=== PATIENT | female | born 1940 | race Caucasian/White ===

== ENCOUNTER 2016-06-03 07:15 | Day surgery (SDC) | payer MEDICARE, OTHER ==
[~2016-06-03] VITALS: Ht 160 cm; Wt 70.0 kg
[~2016-06-03 07:15] MED LIST: 0.9% Sodium Chloride 1,000 ML IV SCH; ASPI-973 PO; GLIM4TAB2 PO; METF-777 PO; METO50TA3 PO; SIMV20TA4 PO; Sodium Chloride LOK Flush 10 mL Syringe IV PRN; TRIA1CAP5 PO; fentaNYL-PF 50 mCg/mL 2 mL Inj IVPUSH PRN
[2016-06-03 08:14] VITALS: BP 153/78; PULSE 88; O2SAT 95
--- NOTE | 2016-06-03 09:12 | PCM.ENDCOL ---
Colonoscopy Date of Service: Jun 03, 2016 Physician Stephane Smith MD Indication for Procedure Rectal bleeding Post Procedure Dx & Findings: Polyps hemorrhoids Procedure Colonoscopy Prep adequate Cecum 6 minutes Withdrawal 15 minutes PROCEDURE IN DETAIL: After unremarkable rectal examination Olympus video colonoscope was inserted patient's anal canal and advanced the cecum. Landmarks were identified including ileocecal valve and the appendiceal orifice. Scope was withdrawn systematically. The mucosa of the cecum, ascending, transverse, descending, sigmoid, rectal mucosa lined with whitish, pink, smooth, glistening, normal-appearing mucosa, normal fine branching, underlying vascularity, normal haustra. The patient tolerated procedure and was transported to observation area. In the transverse colon, there was a 5 mm polyp which was resected completely using cold snare. There was a 1 mm polyp which was also resected with cold forceps. In the sigmoid, there was a 2 mm polyp which was resected completely using cold snare. In the rectum retroflexion was done which showed hemorrhoids and anal canal was inspected carefully on the way out and moderate hemorrhoids noted. Impression Polyps 2 status post complete removal Hemorrhoids Recommendation Repeat colonoscopy 3 years Presedation Assessment Risks and Benefits Informed consent was obtained from the patient after all risks and benefits including but not limited to drug reaction, infection, pain, bleeding, perforation, as well as alternatives were discussed. Patient monitoring Continuous pulse oximetry, cardiac monitoring, blood pressure monitoring, IV access, and oxygen at 2L per nasal cannula. Periprocedural Fentanyl: Fentanyl 100mcg Incrementally Midazolam: Midazolam 5mg Incrementally Complications There were no periprocedural complications identified. Post Procedure Plan Post Procedure Recommendations 1. Restrict activities today. 2. Resume normal activities in the morning. 3. Resume medications. 4. Patient informed of normal post procedure side effects as bloating, drowsiness, blood streaking in the stool. 5. average risk CRCS. If colon polyps come back as: -Hyperplastic- can repeat colonoscopy in 10 years -Tubular adenoma- repeat colonoscopy in 5 years -Tubulovillous/villous adenoma- repeat colonoscopy in 3 years -If any dysplasia- return to clinic as soon as possible 6. Please don't hesitate to call me with any questions. Stephane Smith MD Jun 03, 2016 09:11
[2016-06-03 09:14] VITALS: BP 128/68; PULSE 87; O2SAT 94
[2016-06-03 09:24] VITALS: BP 116/61; PULSE 82; O2SAT 94
[2016-06-03 09:34] VITALS: BP 113/62; PULSE 83; O2SAT 94
[2016-06-03 09:44] VITALS: BP 138/71; PULSE 87; O2SAT 96
--- NOTE | 2016-06-04 11:41 | PATH ---
SURGICAL PATHOLOGY Attending Physician:Stephane Smith M.D. CASE STATUS: Signed Out PATIENT NAME: JT HARRIS PID: [id number] : 1940 DATE COLLECTED:06/03/2016 17:14 SPECIMEN: 1: Colon, Biopsy 2: Colon, Biopsy CLINICAL HISTORY: A: TRANSVERSE POLYP B: SIGMOID POLYP FINAL DIAGNOSIS: 1.TRANSVERSE COLON POLYP: TUBULAR ADENOMA. 2.SIGMOID COLON POLYP: TUBULAR ADENOMA. ICD10 CODE D12.3 GROSS DESCRIPTION: The specimen is received in two formalin filled containers labeled with the patient's name. 1). The specimen is sublabeled "transverse polyp" and consists of multiple portions of tissue which aggregate to 0.7 x 0.6 x 0.4 CM. The specimen is entirely submitted in cassette 1A. 2). The specimen is sublabeled "sigmoid polyps" and consists of a 0.2 x 0.2 x 0.2 CM portion of tissue which is entirely submitted in cassette 2A. 06/03/2016 DAC MICRO DESCRIPTION: See diagnosis. ICD-9 CODES: CPT CODES: 1: 28411 2: 12327 Electronically Signed Out Juan David Woody MD [facility] Pathology [facility] [address], [place] [address] Technical component performed at [facility], [facility] [address], [place], [address]
[2016-11-01] MEDS ORDERED: METO50TA3 PO (14:03)
[2016-11-01] MEDS ORDERED: SIMV20TA4 PO (14:03)
[2016-11-01] MEDS ORDERED: aller-tec (14:03)
[2016-11-01] MEDS ORDERED: TRIA1CAP5 PO (14:03)
[2016-11-01] MEDS ORDERED: DOCU-41 PO (14:03)
[2016-11-01] MEDS ORDERED: INSU100I30 SQ (14:03)
[2016-11-01] MEDS ORDERED: GLIM4TAB2 PO (14:03)
[2016-11-01] MEDS ORDERED: ASPI-973 PO (14:03)
== END 2016-06-03 23:59 | disposition home or self-care (01) ==
LOC: END 07:15
PROVIDERS: ATTEND Internal Medicine
DX: D12.5 Benign neoplasm of sigmoid colon (principal); D12.3 Benign neoplasm of transverse colon; K64.9 Unspecified hemorrhoids; I10 Essential (primary) hypertension; E11.9 Type 2 diabetes mellitus without complications; Z79.4 Long term (current) use of insulin
CPT/HCPCS: 45380; 45385; 88305; 99153; G0500; J2250; J7030

== ENCOUNTER 2016-06-13 07:35 | Emergency (ER) | payer MEDICARE, OTHER ==
[~2016-06-13] VITALS: Ht 157.5 cm; Wt 70.0 kg
[~2016-06-13 07:35] MED LIST changes: -0.9% Sodium Chloride 1,000 ML IV SCH; -Sodium Chloride LOK Flush 10 mL Syringe IV PRN; -fentaNYL-PF 50 mCg/mL 2 mL Inj IVPUSH PRN
[2016-06-13 07:47] VITALS: BP 189/85; PULSE 103; RESP 14; O2SAT 95
[2016-06-13] MEDS ORDERED: 0.9% Sodium Chloride 1,000 ML IV ONE (08:02)
--- NOTE | 2016-06-13 08:05 | ED.REPORT ---
HPI-GI Bleed Date of Service Jun 13, 2016 ED Provider: Raj Garcia MD The patient is a 75 year old female with history of diabetes mellitus, hypertension, hyperlipidemia, and colon cancer s/p colectomy, who presents to the emergency department complaining of left lower abdominal cramping that has been intermittent over the last few days. The pain lasts for a little over an hour. The pain seems to be improved with applied heat and Ibuprofen. She has also noticed bleeding but is unsure if it is coming from her rectum or vagina. She recently had a colonoscopy on the for these same symptoms. She was told that she has hemorrhoids. They also removed polyps but she has not heard back about the results. She denies history of Crohn's disease, diverticulitis, or ulcerative colitis. She takes 81 mg aspirin daily but no other blood thinners. She denies fever, chills, nausea, vomiting, diarrhea, shortness of breath or chest pain. Nursing Notes Stated Complaint: COLON PAIN/BLEEDING Chief Complaint: Female Abdominal Pain Nursing Notes Reviewed: Yes Allergies: Coded Allergies: Penicillins (Verified Allergy, Unknown, 06/02/16) Scheduled Aspirin (Aspirin) 81 Mg Tablet 81 MG PO DAILY Glimepiride (Glimepiride) 4 Mg Tablet 4 MG PO DAILYAC Metformin HCl (Metformin HCl ER) 500 Mg [id number] 500 MG PO ACHS Metoprolol Tartrate (Metoprolol Tartrate) 50 Mg Tablet 50 MG PO BID Polyethylene Glycol 3350 (Miralax) 17 Gm Powd.pack 17 GM PO DAILY Simvastatin (Simvastatin) 20 Mg Tablet 20 MG PO HS Triamterene/HCTZ 37.5-25 mg (Triamterene/HCTZ 37.5-25 mg) 1 Each Capsule 1 CAPSULE PO DAILY General Time Seen by Provider: 08:06 Chief Complaint Chief Complaint: Abdominal pain Hx Obtained From: Patient Arrived By: Walk-in Onset Occurred: 3 days ago Symptom Duration: Intermittent Progression Since Onset: Intermittent Location: : LLQ Quality: Painful Radiation: : Does not radiate Severity: Current: Moderate Severity: Maximum: Moderate Recent Healthcare: No recent hospitalization, Recent doctor visit, Previous surgery Similar Sx Previous: No Past Medical History Past Medical History Colon Cancer s/p colectomy Diabetes mellitus Hyperlipidemia Hypertension Past Surgical History Colonoscopy Colectomy Family History Noncontributory Smoking History Former Smoker Social History Other Social History: Local resident Ambulatory Status Independent Review of Systems Review of Systems Note: +bleeding from vagina or rectum Constitutional: Denies: Chills, Fever Respiratory: Denies: Shortness of breath Cardiovascular: Denies: Chest pain GI: Reports: Abdominal pain, Denies: Diarrhea, Nausea, Vomiting Complete sys rev & neg: except as marked. Physical Exam Initial Vital Signs Vital Signs (First) Date Time Temp Pulse Resp B/P Pulse Ox O2 Delivery O2 Flow Rate FiO2 06/13/16 07:47 36.3 103 14 189/85 95 Room Air Initial VS: Reviewed Head / Eyes: Atraumatic, Normocephalic, PERRL ENT: Mucous membranes moist, Conjunctiva normal, No scleral icterus Neck: Supple, Non-tender, Full range of motion Lymphatic: No lymphadenopathy Extremities: Vascular intact, Neuro intact, No swelling, No tenderness Skin: Warm, Dry, No cyanosis Neurologic: Alert, Oriented, Nonfocal Psychiatric: Mood/affect normal, Behavior normal, Normal thought content General/Constitutional: Awake, Alert, No acute distress, Cooperative Respiratory / Chest: Atraumatic, Breath sounds NL, Breath sounds = bilat, No respiratory distress, No rales, No rhonchi, No wheezing Cardiovascular: Heart rate NL, Regular rhythm, Heart sounds NL, No murmurs, No rubs, Cap refill not delayed, Peripheral circulation NL, Pulses = bilaterally Abdomen: Atraumatic, Soft, McBurney's non-tender, No guarding, No rebound, BS normoactive, No distention, No hernia, No palpable mass, No pulsatile mass Well healed midline surgical incision. Tolerates firm palpation in all 4 quadrants. Mild tenderness to really firm palpation in the LLQ. No rigidity. Rectal for Blood: Positive: Blood - occult heme + Aitchbone Breaker present. Bright red blood present at the rectum. She has no obvious source of bleeding. Firm stool present in the rectal vault that is mixed with bright red blood. Lower Extremity / Pelvis / MS: No swelling, Non-tender, Neurologic intact, Vascular intact, No edema No calf swelling or tenderness Interpretation & Diagnostics Lab Results Interpretation Result Diagram: 06/13/16 0805 06/13/16 0802 Test 06/13/16 08:02 06/13/16 08:05 06/13/16 09:12 Sodium Level 142mEq/L (134-144) Potassium Level 4.0mEq/L (3.5-5.2) Chloride Level 102mEq/L (97-108) Carbon Dioxide Level 26mmol/L (18-29) Blood Urea Nitrogen 16mg/dL (8-27) Creatinine 0.72mg/dL (0.57-1.00) Estimat Glomerular Filtration Rate 113mL/min (>59) Glucose Level 208mg/dL (60-99) Calcium Level 9.5mg/dL (8.5-10.1) Total Bilirubin 0.4mg/dL (0.0-1.2) Aspartate Amino Transf (AST/SGOT) 25U/L (0-50) Alanine Aminotransferase (ALT/SGPT) 24U/L (0-32) Alkaline Phosphatase 56U/L (25-165) Total Protein 7.7g/dL (6.4-8.4) Albumin 4.3g/dL (3.4-5.0) White Blood Count 10.9th/mm3 (3.8-10.1) Red Blood Count 4.82mil/mm3 (3.90-5.20) Hemoglobin 14.4g/dL (12.0-15.6) Hematocrit 42.9% (35.0-46.0) Mean Corpuscular Volume 89.0fL (81-100) Mean Corpuscular Hemoglobin 29.9pg (27.0-35.0) Mean Corpuscular Hemoglobin Concent 33.6% (32.0-37.0) Red Cell Distribution Width 13.9% (12.3-15.4) Platelet Count 300bil/L (150-400) Neutrophils (%) (Auto) 58.4% (40-74) Lymphocytes (%) (Auto) 33.5% (14-46) Monocytes (%) (Auto) 5.7% (4-12) Eosinophils (%) (Auto) 1.9% (0-5) Basophils (%) (Auto) 0.3% (0-3) Prothrombin Time 10.2sec (8.1-12.5) Prothromb Time International Ratio 0.95ratio Urine Color Yellow (YELLOW) Urine Appearance Clear (CLEAR,HAZY) Urine pH 6.0 (5.0-8.0) Urine Specific [place] 1.018 (1.003-1.035) Urine Protein Negativemg/dL (NEG,TRACE) Urine Glucose (UA) Negativemg/dL (NEGATIVE) Urine Ketones Negativemg/dL (NEGATIVE) Urine Occult Blood Negative (NEGATIVE) Urine Nitrite Negative (NEGATIVE) Urine Bilirubin Negative (NEGATIVE) Urine Urobilinogen Normalmg/dL (NORMAL) Urine Leukocyte Esterase Negative (NEGATIVE) Urine RBC 0-2/hpf (0-2) Urine WBC 0-5/hpf (0-5) Urine Epithelial Cells Moderate/hpf (NONE-MOD) Urine Crystals None seen (NONE SEEN) Urine Bacteria None/hpf (NONE-FEW) Urine Hyaline Casts None/lpf (NONE) Urine Granular Casts None seen (NONE SEEN) Urine Waxy Casts None seen (NONE SEEN) Urine Red Blood Cell Casts None seen (NONE SEEN) Urine White Blood Cell Casts None seen (NONE SEEN) Urine Mucus None seen (None Seen) Urine Trichomonas None seen (NONE SEEN) Urine Yeast None (NONE SEEN) Urinalysis Comment None Urine Culture Reflexed Not indicated ECG Interpretation ECG Interpretation: Normal sinus rhythm with a rate of 91 Time: 08:20 Interpreted by: ED physician Procedures PROCEDURE: ANOSCOPE NOTES: There is evidence of internal hemorrhoids. There is no evidence of active bleeding. No masses seen. Re-Eval/Medical Decision Med Decision/Clinical Course In summary, the patient is 75-year-old female with a remote history of colon cancer status post partial colectomy who presents the emergency department with intermittent sharp abdominal pain and bright red blood per rectum. The patient was recently seen and evaluated for the same complaint and underwent a colonoscopy that was unremarkable except for 2 polyps which were removed. Pathology is still pending. She presents back to the emergency department complaining that she is still having intermittent left-sided abdominal discomfort, hard stools and bright red blood per rectum. Of note her colonoscopy did mention presence of internal hemorrhoids. He is afebrile stable vital signs in no apparent distress. Her abdominal examination is benign without any evidence of guarding, rigidity, rebound or guarding or significant focal tenderness. Lab for studies notable as below: WBC 10.9, hematocrit 42.9, CMP is unremarkable except mildly elevated glucose, coags normal She was discussed with GI doctor Luis who performed colonoscopy. Given the small size of polyps he thinks that bleeding is likely to be related to recent polypectomy and more likely to be related to internal hemorrhoids. Anoscopy was performed and demonstrated internal hemorrhoids. The patient also had hard brown stool in the rectal vault. I see no evidence of external hemorrhoids, anal fissures or obvious source of bleeding. Given the patient's recent colonoscopy and endoscopy today I think that her bleeding is unlikely to be related to malignancy. There were no findings suggestive of upper GI source and the patient's stool was brown and non-melanotic. Patient prescribed MiraLAX and advised to increase dietary fiber. I suspect her bleeding is related to her internal hemorrhoids. She will follow up with GI on an outpatient basis in the coming week. Follow-up and return precautions were reviewed in detail she was discharged in good condition. Source of Hx: Old records Re-Evaluation/Progress : Time of Eval: 10:12 Re-Evaluation/Progress Note: Rehecked the patient. Used the anoscope. Discussed diagnosis and plan for discharge. All questions were addressed. Consultation : Referral / Consult Name: Stephane Smith MD Call Returned at: 09:16 Note: Spoke with the on-call associate web developer. He is okay with plan for discharge and outpatient followup. Counseled Regarding: Diagnosis, Lab results, Need for follow-up, When/why to return to ED Discharge & Departure Impression: Primary Impression: Constipation Constipation type: unspecified constipation type Qualified Code: K59.00 - Constipation, unspecified Additional Impressions: Hemorrhoids Hemorrhoid type: unspecified Qualified Code: K64.9 - Unspecified hemorrhoids Rectal bleeding History of colon cancer Lower abdominal pain Disposition: Home Discharge Condition All VS Reviewed: Yes Condition: Stable Patient Instructions: Constipation (ED) Additional Instructions: Thank you for seeking care at the emergency room. It is difficult for us to make definitive diagnoses in the ED but we believe that you are experiencing pain from constipation and bleeding from the hemorrhoids. Our primary goal today in the ED was to evaluate you for any life-threatening conditions. Your evaluation was reassuring. You will be discharged with a prescription for MiraLAX. You can mix this with water or juice. You should also try to increase your fiber intake and make sure to drink plenty of fluids. You should follow-up with your GI specialist, Dr. Smith in the next week. You should return to the ED immediately if you develop increased pain, heavy bleeding, fevers, vomiting, lightheadedness, weakness or any other concerning signs or symptoms. Thank you for letting us partake in your care today. Referrals: Marily Toscano PA-C (PCP) Stephane Smith MD [facility] Attestation Portions of this note were transcribed by Carmela Lowe. I, Dr. Garcia personally performed the history, physical exam and medical decision-making; I reviewed and confirmed the accuracy of the information in the transcribed note. Signed by: Ronal Virgen, 06/13/2016 and 1020. copies to: Stephane Smith MD; Marily Toscano PA-C, Beck O MD Jun 13, 2016 08:05 Carmela Lowe Jun 13, 2016 08:10
[2016-06-13 08:20] LABS: BASOPHILS % (AUTO) 0.3 % (0-3); EOSINOPHILS % (AUTO) 1.9 % (0-5); MONOCYTES % (AUTO) 5.7 % (4-12); Mean Corpuscular Hemoglobin 29.9 pg (27.0-35.0); NEUTROPHILS % (AUTO) 58.4 % (40-74); Platelet Count 300 bil/L (150-400)
[2016-06-13 08:36] VITALS: BP_SYST 147; BP_SYST 149; BP_SYST 151; BP_DIAS 64; BP_DIAS 76; BP_DIAS 81; PULSE 83; PULSE 85; O2SAT 96
[2016-06-13 08:37] LABS: INR 0.95 ratio
[2016-06-13 09:47] LABS: APPEARANCE,URINE CLEAR (CLEAR,HAZY); COLOR,URINE YELLOW (YELLOW); OCCULT BLOOD,URINE NEGATIVE (NEGATIVE); UROBILINOGEN,URINE NORMAL (NORMAL)
[2016-06-13] MEDS ORDERED: POLY17PO6 PO (10:17)
[2016-06-13 10:25] VITALS: BP 141/69; PULSE 78; RESP 17; O2SAT 99
[2016-11-01] MEDS ORDERED: ASPI-973 PO (14:03)
[2016-11-01] MEDS ORDERED: TRIA1CAP5 PO (14:03)
[2016-11-01] MEDS ORDERED: GLIM4TAB2 PO (14:03)
[2016-11-01] MEDS ORDERED: INSU100I30 SQ (14:03)
[2016-11-01] MEDS ORDERED: METO50TA3 PO (14:03)
[2016-11-01] MEDS ORDERED: DOCU-41 PO (14:03)
[2016-11-01] MEDS ORDERED: SIMV20TA4 PO (14:03)
[2016-11-01] MEDS ORDERED: aller-tec (14:03)
== END 2016-06-13 10:26 | disposition home or self-care (01) ==
LOC: SED 07:35
DX: K59.00 Constipation, unspecified (principal); K64.9 Unspecified hemorrhoids; R10.32 Left lower quadrant pain; I10 Essential (primary) hypertension; E11.9 Type 2 diabetes mellitus without complications; E78.5 Hyperlipidemia, unspecified; Z85.038 Personal history of other malignant neoplasm of large intestine; Z90.49 Acquired absence of other specified parts of digestive tract; Z79.82 Long term (current) use of aspirin; Z79.84 Long term (current) use of oral hypoglycemic drugs; Z87.891 Personal history of nicotine dependence; Z88.0 Allergy status to penicillin
CPT/HCPCS: 36415; 80053; 81000; 85025; 85610; 86850; 93005; 96360; 99285; J7030

== ENCOUNTER 2016-11-02 08:01 | Day surgery (SDC) | payer MEDICARE, OTHER ==
[~2016-11-02] VITALS: Ht 157.5 cm; Wt 70.5 kg
[2016-11-02] VITALS (12 sets, daily range): BP systolic 119–152; BP diastolic 51–77; PULSE 66–91; RESP 11–16; O2SAT 91–100
[~2016-11-02 08:01] MED LIST changes: +DOCU-41 PO; +INSU100I30 SQ; +Insulin Human REGular 300 Unit/3 mL Inj SUBQ SCH; -METF-777 PO; +aller-tec
[2016-11-02] MEDS ORDERED: fentaNYL-PF 50 mCg/mL 2 mL Inj ONE (08:02)
[2016-11-02] MEDS ORDERED: Ondansetron 2 mg/mL 2 mL Inj ONE (08:02)
[2016-11-02] MEDS ORDERED: Propofol 10,000 mCg/mL 20 mL Inj ONE (08:02)
[2016-11-02] MEDS: Lactated Ringer's 1,000 ML IV SCH ×3 (08:19→13:10)
[2016-11-02 08:58] LABS: BASOPHILS % (AUTO) 0.7 % (0-3); EOSINOPHILS % (AUTO) 3.4 % (0-5); MONOCYTES % (AUTO) 7.2 % (4-12); Mean Corpuscular Hemoglobin 29.8 pg (27.0-35.0); Mean Corpuscular Volume 89.8 fL (81-100); NEUTROPHILS % (AUTO) 55.7 % (40-74); Platelet Count 269 bil/L (150-400)
--- NOTE | 2016-11-02 10:54 | PCM.HPANE ---
Patient Data Surgeon Admitting Provider: Attending Provider:Renetta Bryant MD Primary Care Physician:Marily Toscano PA-C Other Provider:Molly Pandey Anesthesia Reason for Visit Vaginal Bleeding Ht/WT & BMI Height (Feet): 5 Height (Inches): 2.00 Weight (Kilograms): 70.500 Body Mass Index 28.00 Allergies Coded Allergies: Penicillins (Verified Allergy, Unknown, 06/02/16) Iodinated Contrast- Oral and IV Dye (Verified Adverse Reaction, Unknown, delayed reaction of itching, 10/01/16) Pt told doctor that she had itching a couple of days after contrast. She is being pretreated for CT 10/04/16. kld Past Anesthesia History Anesthesia History: Denies:: Abnormal Airway, Anesthesia Reactions, Difficult Intubation, Fam Anesthesia Reaction, Fam Malignant Hypertherm, Malignant Hyperthermia Diabetes History Hx Diabetes?: Yes Type of Diabetes: Type II Glycemic Control: Insulin & Oral Medication MRSA MRSA: No Medications Blood Thinner: Aspirin Hypertension Medication: No Home Meds Incl Beta Louis: Yes (Metoprolol 25) Date Beta Louis Taken: Nov 02, 2016 Time Beta Louis Taken: 0700 Previous Beta Louis Dose >24: Previous Dose <24 Hours Reported Medications Triamterene/HCTZ 37.5-25 mg 1 Each Capsule1 Capsule PO DAILY Ref 0 11/01/16 Simvastatin 20 Mg Vecuhl25 Mg PO HS Ref 0 11/01/16 Metoprolol Tartrate 50 Mg Tgabmv35 Mg PO BID 30 Days Ref 0 11/01/16 Glimepiride 4 Mg Tablet4 Mg PO DAILY #30 TABLET Ref 0 11/01/16 Docusate Sodium (Colace)100 Mg [id number] Mg PO DAILY PRN For Constipation Ref 0 11/01/16 Insulin Glargine,Hum.rec.anlog (Basaglar Kwikpen U-100)100 Unit/Ml (3 Ml) Insuln.pen34 Unit SQ DAILY 11/01/16 Aspirin 81 Mg Tmpkqe84 Mg PO DAILY Ref 0 11/01/16 [aller-kimberly] No Conflict Check10 Mg DAILY PRN allergy sx 11/01/16 Discontinued Reported Medications Triamterene/HCTZ 37.5-25 mg 1 Each Capsule1 Capsule PO DAILY Ref 0 06/02/16 Simvastatin 20 Mg Zhcevm39 Mg PO HS Ref 0 06/02/16 Metoprolol Tartrate 50 Mg Dhrjgv59 Mg PO BID 30 Days Ref 0 06/02/16 Metformin HCl (Metformin HCl ER)500 Mg [id number] Mg PO ACHS 06/02/16 Glimepiride 4 Mg Tablet4 Mg PO DAILYAC #30 TABLET Ref 0 06/02/16 Aspirin 81 Mg Lgmqrr38 Mg PO DAILY Ref 0 06/02/16 Discontinued Scripts Polyethylene Glycol 3350 (Miralax)17 Gm Powd.pack17 Gm PO DAILY 30 Days Prov:Raj Garcia MD 06/13/16 History History of ENT Problems?: No HEENT History: Denies:: Abnormal Airway Cataracts Difficult Intubation Dysphagia Glaucoma Hearing Problem Denture Type: Full- Upper Partial- Lower Teeth Condition: No Teeth Missing Teeth Hx of Heart Problems?: Yes Cardiovascular History: Positive for:: Hypertension Denies:: AICD Abdominal Aortic Aneurism Atrial Fibrillation Chest Pain Congestive Heart Failure Irregular Heartbeat Pacemaker Valvular Heart Disease Hx of Respiratory Problem?: No Respiratory History: Denies:: Asthma COPD Chest Surgery Cough Dyspnea Emphysema Hemoptysis Oxygen Administration Pneumonia Pulmonary Embolism Tuberculosis Use of C-PAP Machine Use of Inhalers / NEBS Hx Neurologic Problems?: No Neurological History: Denies:: CVA Dementia Headaches Multiple Sclerosis Parkinson's Disease Seizures Hx of GI Problems?: Yes Other GI Pertinent History: hx of sigmoid colectomy for colon cancer Hx of Problems?: No Genitourinary History: Denies:: Kidney Stones Urinary Tract Infection Female Hx: Denies:: Currently Problems with Breasts? Skin History: Denies:: History Skin Disorders? Pressure Ulcers Hx Musculoskeletal Problems?: No Musculoskeletal History: Denies:: Degenerative Joint Fibromyalgia Joint Replacement Myasthenia Gravis Osteoarthritis Psycho Social History: Denies:: Anxiety Hx Depression Hx Surgeries?: Yes (colon resection, ) Hx Any Other Health Problems?: Yes Other History: Positive for:: Cancer (colon) Denies:: Thyroid Disease History Blood Transfusions: Positive for:: Accept Blood Products? Denies:: Blood Transfusions Hx Diabetes: Yes Hx Alcohol Use: NoHx Substance Use: No Smoking Status: Former Smoker Stop/Bang S-Snoring: Do You Snore Loudly: No T-Tired: feel tired, fatigued: No O-Obsered: Observed not breath: No P-Blood Pressure: treated: No B- Body Mass Index > 35 kg/m2: No A- Age over 50: No N- Neck Large Circumference: No G- Gender Male: No APRIL Total Score: 0 APRIL Risk Assessment: Low Risk, <3 Yes Risk Assessment Category Category 1A: Patient has history of documented sleep apnea, and HAS NOT received any narcotic, sedative or anesthesia administration during this stay. Category 1B: Patient has history of documented sleep apnea, and HAS received any narcotic , sedative or anesthesia administration during this stay Category 2: Patient has SUSPECTED Obstructive Sleep Apnea, and HAS received any narcotic , sedative or anesthesia administration during this stay. Category 3: Patient has SUSPECTED Obstructive Sleep Apnea and HAS NOT received narcotic, sedative or anesthesia administration during this stay. Category 4: Outpatient in Procedural Areas with known sleep apnea or who screen positive for High Risk via the STOP/BANG questionnaire. Exam Exam Vital Signs Vital Signs Date Time Temp Pulse Resp B/P Pulse Ox O2 Delivery O2 Flow Rate FiO2 11/02/16 08:17 35.9 66 12 151/61 96 Room Air General Appearance: Alert, Oriented X3, Cooperative, No Acute Distress HEENT/AIRWAY: MP 2 Lungs: Clear to Auscultation, Normal Air Movement Heart: Exam Unremarkable, Regular Rate/Rhythm, No Murmurs/Rubs/Gallops Meds/Labs/Diagnostics Admission Meds Current Medications Lactated Ringer's (Lr) 1,000 ml @ 120 mls/hr Q8H20M IV Last administered on t 08:19; Start 11/02/16 at 05:00; Stop 11/02/16 at 13:19 Labs Test 11/02/16 08:54 White Blood Count 7.4th/mm3 (3.8-10.1) Red Blood Count 4.20mil/mm3 (3.90-5.20) Hemoglobin 12.5g/dL (12.0-15.6) Hematocrit 37.7% (35.0-46.0) Mean Corpuscular Volume 89.8fL (81-100) Mean Corpuscular Hemoglobin 29.8pg (27.0-35.0) Mean Corpuscular Hemoglobin Concent 33.2% (32.0-37.0) Red Cell Distribution Width 13.4% (12.3-15.4) Platelet Count 269bil/L (150-400) Neutrophils (%) (Auto) 55.7% (40-74) Lymphocytes (%) (Auto) 32.9% (14-46) Monocytes (%) (Auto) 7.2% (4-12) Eosinophils (%) (Auto) 3.4% (0-5) Basophils (%) (Auto) 0.7% (0-3) Plan Impression Patient chart reviewed, patient interviewed and anesthestic plan with risks, benefits, and alternatives discussed, and informed consent obtained. NPO per Anesth. Guidelines: Yes ASA Physical Status: ASA2 Mod Systemic Disease Anesthetic Plan: GA Bene/Risks/Altern/Consents: Yes HP Complete Prior to Induction: Yes Sohail Grullon MD Nov 02, 2016 09:13
[2016-11-02] MEDS ORDERED: Labetalol 5 mg/mL 4 mL Inj IV PRN (10:55)
[2016-11-02] MEDS ORDERED: fentaNYL-PF 50 mCg/mL 2 mL Inj IVPUSH PRN (10:55)
[2016-11-02] MEDS ORDERED: Phenylephrine 10,000 mCg/mL Inj IVPUSH PRN (10:55)
[2016-11-02] MEDS ORDERED: MetoCLOpramide 5 mg/mL 2 mL Inj IVPUSH PRN ×2 (10:55→12:00)
[2016-11-02] MEDS ORDERED: Atropine 0.4 mg/mL Inj IVPUSH PRN (10:55)
[2016-11-02] MEDS ORDERED: HYDROmorphone 1 mg/mL Inj IVPUSH PRN ×2 (10:55→12:00)
[2016-11-02] MEDS ORDERED: Lactated Ringer's 500 ML IV PRN (10:55)
[2016-11-02] MEDS ORDERED: Lactated Ringer's 1,000 ML IV SCH (10:55)
[2016-11-02] MEDS ORDERED: EPHEDrine Sulfate 50 mg/mL Inj IVPUSH PRN (10:55)
[2016-11-02] MEDS ORDERED: Ondansetron 2 mg/mL 2 mL Inj IVPUSH PRN ×2 (10:55→12:00)
[2016-11-02] MEDS ORDERED: Ketorolac 15 mg/mL Inj IVPUSH PRN ×2 (12:00→15:17)
[2016-11-02] MEDS ORDERED: diphenhydrAMINE 25 mg Capsule PO PRN (12:00)
[2016-11-02] MEDS ORDERED: oxyCODONE-Acetamin 5-325 mg Tablet PO PRN (12:00)
--- NOTE | 2016-11-02 12:03 | PCM.DIGYN ---
Surgical Discharge Instruction Dates of Hospitalization Date of Hospital Admission Providers Admitting Physician: Primary Care Physician: Marily Toscano PA-C Attending Physician: Renetta Bryant MD Diet Discharge Diet: No restrictions Activity Discharge Activity-General: Be up and about, Balance rest and activity, Activity as energy allows, No lifting >15 pounds for 2 weeks, No driving while taking narcotic Dressing and Incisional Care Hygiene: May shower Additional Instructions Discharge Instructions Please call with severe pain, temperature greater than 100.5 degrees, heavy vaginal bleeding filling more than a pad per hour, or malodorous vaginal discharge Follow Up Plan Follow-up Provider (F9): Renetta Bryant MD Follow-up appointment: Weeks (2) Call your provider for: Fever, Chills, Shortness of breath, Heavy vaginal bleeding, Increasing pain Renetta Bryant MD Nov 02, 2016 12:03
--- NOTE | 2016-11-02 12:08 | PCM.ANEP1 ---
Post Anesthesia PACU Phase 1 Assessment Vital Signs see RN notes for VS Vital Signs Date Time Temp Pulse Resp B/P Pulse Ox O2 Delivery O2 Flow Rate FiO2 11/02/16 08:17 35.9 66 12 151/61 96 Room Air Anesthetic Administered: GA Level of Alertness: Sleepy, easy to arouse ESCOBEDO's with Equal Strength: Yes Pain: No Nausea or Vomiting: No CV Function & Hydration Stable: Yes Airway Device: Oxygen Delivery: Simple Mask Lungs: Clear to Auscultation, Normal Air Movement PACU Phase 2 Assessment Complications: No Follow up Care: N/A Patient Instructions Provided: N/A Sohail Grullon MD Nov 02, 2016 12:08
[2016-11-02] MEDS ORDERED: HYDROmorphone 0.5 mg/0.5 mL iSecure Syringe ONE ×2 (12:27→12:42)
--- NOTE | 2016-11-02 14:34 | OP ---
[address] [address] OPERATIVE REPORT PATIENT: GREGG HARRIS : 1940 MR#: [id number] ADMIT: 11/02/2016 JOB ID: [id number] DATE OF SURGERY: 11/02/2016 PREOPERATIVE DIAGNOSIS(ES): Postmenopausal bleeding. POSTOPERATIVE DIAGNOSIS(ES): Postmenopausal bleeding. PROCEDURE PERFORMED: Hysteroscopy with dilation and curettage. FINDINGS: An 8-week size uterus with some endometrial hyperplastic tissue and multiple small nodules. SURGEON: Renetta Bryant M.D. ANESTHESIA: General endotracheal anesthesia. ESTIMATED BLOOD LOSS: 100 cc. FLUID REPLACEMENT: 900 cc of crystalloid. FLUID DEFICIT: 600 cc of crystalloid. COMPLICATIONS: None apparent. INDICATIONS: This is a 76-year-old female who was referred to my clinic for evaluation of postmenopausal bleeding. She had a history of colon cancer and was status post a low anterior resection in the remote past. She began having increasing what she thought was rectal bleeding and presented to her primary care provider who referred her back to her general surgeon. Dr. Valentine completed an anoscopy and noted that the bleeding appeared to be vaginal in nature and there was a moderate amount of bleeding associated at that time. I then subsequently saw the patient in clinic and recommended proceeding with a dilation and curettage. Risks, benefits, alternatives to the surgery were discussed with her beforehand and she elected to proceed. DESCRIPTION OF PROCEDURE: The patient was taken to the operating room. She was placed in dorsal lithotomy position. Prepped and draped in the usual sterile fashion for her procedure. A bivalve speculum was placed and the anterior lip of her cervix was grasped with a tenaculum. Her uterus sounded to 9 cm and was serially dilated to allow a size 7 Hegar dilator. The hysteroscope was then inserted under direct visualization and the endometrial lining was noted to be mostly thinned out but there was some thickening of the tissue along the lower uterine segment and along the cervical canal. On closer inspection she was also noted to have multiple small white nodules throughout her endometrial cavity of unknown significance. Using the MyoSure device, directed biopsies were taken of the nodules as well as of the thickened endometrial lining where noted. The hysteroscope was then removed from the abdominal cavity. An endocervical curettage was completed, followed by an endometrial curettage with the sharp curette. When this was done, the patient was noted to have a moderate amount of brisk bleeding totaling approximately 75 cc. This did slow with bimanual massage and pressure until good hemostasis was noted. The tenaculum was removed from the cervix and the tenaculum sites were noted to be hemostatic. The speculum was removed. The patient was brought to PACU in stable condition. MAINOR
--- NOTE | 2016-11-05 13:10 | PATH ---
SURGICAL PATHOLOGY Attending Physician:Renetta Bryant, CASE STATUS: Signed Out PATIENT NAME: GREGG HARRIS PID: [id number] : 1940 DATE COLLECTED:11/02/2016 21:02 SPECIMEN: 1: Endocervix, Curettage 2: Endometrium, Curettage CLINICAL HISTORY: POSTMENOPAUSAL BLEEDING 1). ENDOCERVICAL CURETTING 2). ENDOMETRIAL CURETTING FINAL DIAGNOSIS: 1.ENDOCERVIX, CURETTAGE: SUPERFICIAL FRAGMENTS OF ATYPICAL GLANDULAR PROLIFERATION (SEE COMMENT). SCANT FRAGMENTS OF BENIGN ENDOCERVICAL MUCOSA. 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 Flori Romo M.D. ICD10 C54.1 NOTE: The endometrial adenocarcinoma is characterized by complex, irregular and crowded endometrioid-type glands with nuclear hyperchromasia and increased mitotic activity. The glands are focally seen infiltrating through a desmoplastic stroma. A minor component of the adenocarcinoma exhibits mucinous features with apical and/or luminal mucin. Focally, the tumor cells exhibit more eosinophilic cytoplasm with a higher grade of nuclear atypia; however, this is a minor component (seen in less than 25% of the overall tumor). Additionally, the surface of the adenocarcinoma exhibits papillary syncytial-type features and clear cell change. The atypical glandular proliferation identified in the endocervical curettage does not exhibit features characteristic of the endometrioid adenocarcinoma identified in the endometrial specimen, but rather consists of minimally atypical crowded glands accompanied by vascular and fibrotic stroma. These glands may represent sloughed superficial surface fragments, however, from the endometrial adenocarcinoma which shows syncytial-type change. This case is also reviewed by Dr. China Abarca; who concurs with the given interpretation. The results and findings of this case are discussed by Dr. Romo with Dr. Bryant on 11/04/2016 at 12:00 p.m. She reports that the patient has a history of a lower anterior resection for colon carcinoma approximately 15 years ago and underwent at that time a bilateral salpingo-oophorectomy. She currently presents with vaginal bleeding. Dr. Bryant reports identifying sloughed tissue in the lower uterine segment and white nodules of tumor in the right cornu. Additionally, at this juncture, given the patient' s history of colon carcinoma, Dr. Bryant requests performance of immunostains for mismatch repair proteins on the current endometrial adenocarcinoma; those results will be reported as an addendum. GROSS DESCRIPTION: The specimen is received in two formalin filled containers labeled with the patient's name. 1). The specimen is sublabeled "endocervical curetting" is a less than 0.25 cc aggregate of mucoid material and blood which is entirely submitted in cassette 1A. 2). The specimen is sublabeled "endometrial curetting" and consists of multiple portions of white-rm escobedo tissue and blood which aggregate to 6.0 x 2.5 x 0.5 CM the specimen is filtered and entirely submitted in cassettes 2A, 2B, 2C, 2D, 2E. 11/02/2016 DAC MICRO DESCRIPTION: See diagnosis. ICD-9 CODES: CPT CODES: 1: 22726 2: 68165, 50817, 25722, 39898, 45843 PROCEDURE/ADDENDA: Immunohistochemistry SPI Interpretation {Not Entered} Results-Comments The purpose of the addendum comment is to include the results of the mismatch repair proteins performed by immunohistochemistry, at the request of Dr. Bryant. The *immunostains are performed on block 2B, with controls stained appropriately. The tumor shows the following results: MLH1:Loss of expression PMS2: Loss of expression MSH2: No loss of expression MSH6: No loss of expression. 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 Most endometrial adenocarcinomas showing loss of MLH1 and PMS2 are sporadic tumors and usually not associated with Lawton syndrome. Nevertheless, PCR-based methylation testing is recommended to confirm. (Reference Lawton Syndrome Screening In The Gynecologic Tract., Am J Surg Pathol. 2016; 40: e35-e43). Technical note: *This test was developed and its performance characteristics determined by [employer]. It has not been cleared or approved by the [place]. [place]. Food and Drug Administration. The FDA has determined that such clearance or approval is not necessary. This test is used for clinical purposes. It should not be regarded as investigational or for research. Electronically Signed Out Flori Romo M.D., [facility] Electronically Signed Out Flori Romo M.D., [facility] [address], [place] [address] Technical component performed at [facility], [address], [place], [address]
== END 2016-11-02 23:59 | disposition home or self-care (01) ==
LOC: SAS 08:01
PROVIDERS: ATTEND Obstetrics & Gynecology
PROC: 0UDB8ZX Extraction of Endometrium, Via Natural or Artificial Opening Endoscopic, Diagnostic (ICD-10-PCS; principal; 2016-11-02 10:30)
DX: N95.0 Postmenopausal bleeding (principal); C54.1 Malignant neoplasm of endometrium; Z85.038 Personal history of other malignant neoplasm of large intestine; Z90.49 Acquired absence of other specified parts of digestive tract; I10 Essential (primary) hypertension; E11.9 Type 2 diabetes mellitus without complications; Z79.4 Long term (current) use of insulin; Z79.84 Long term (current) use of oral hypoglycemic drugs
CPT/HCPCS: 36415; 58558; 85025; 88305; 88341; 88342; J1170; J1885; J2405; J3010; J7120